=== PATIENT | male | born 1955 | race Caucasian/White ===

== ENCOUNTER 2022-09-21 09:19 | Emergency (ER) | payer OTHER ==
[~2022-09-21] VITALS: Ht 182.9 cm; Wt 83.0 kg
[2022-09-21 09:20] VITALS: BP_SYST 165
--- NOTE | 2022-09-21 09:20 | NUR ---
BROUGHT INTO BED #7 AND TRIAGED. REPORT GIVEN TO MITCH
--- NOTE | 2022-09-21 09:28 | NUR ---
PT STATES HE WAS CHANGING LIGHT BULBS ON A LADDER AND FELL, HITTING WALL AND TRASH CANS ON HIS WAY DOWN, THIS HAPPENED LAST NIGHT. PT STATES HE WENT TO URGENT CARE AND THEY SENT HIM HERE FOR CT. PT STATES PAIN TO LEFT CHEST WALL AND LEFT UPPER BACK. DENIES K.O. PT STATES HE IS HAVING SPASMS IN THE RIBS
--- NOTE | 2022-09-21 09:35 | NUR ---
PATIENT AMBULATORY TO ER C/O LEFT SIDED ARM BACK AND LEG PAIN S/P FALL LAST NIGHT FROM A LADDER, SKIN TEAR NOTED TO LEFT UPPER ARM, C/O CHEST PAIN AWAITING FOR EDP FOR INITIAL ASSESSMENT.
[2022-09-21] MEDS ORDERED: BACITRACIN 1 GM OINT TP ONE ×2 (09:38→09:45)
--- NOTE | 2022-09-21 09:40 | NUR ---
EDP AT BEDSIDE FOR INITIAL ASSESSMENT.
[2022-09-21] MEDS ORDERED: DIPHTH,PERTUSS(ACELL),TET VAC 0.5 ML VIAL (Tdap) I.M. ONE (09:45)
[2022-09-21] MEDS ORDERED: HYDROcodone/ACETAMIN 5-325 MG TAB (NORCO/ VICODIN) PO ONE (09:45)
--- NOTE | 2022-09-21 09:58 | NUR ---
TAKEN TO RADIOLOGY VIA WHEELCHAIR FOR TESTING
[2022-09-21 10:05] LABS: BASOPHILS # (AUTO) 0.1 K/uL (0.0-0.2); BASOPHILS % (AUTO) 0.8 % (0.0-2.0); EOSINOPHILS % (AUTO) 0.1 % (0.0-4.0); HEMATOCRIT 52.1 % (36-54); HEMOGLOBIN 17.7 g/dL (14.0-18.0); LYMPHOCYTES # (AUTO) 0.9 K/uL (1.0-5.5); LYMPHOCYTES % (AUTO) 10.7 % (20.5-51.5); MEAN CORPUSCULAR HEMOGLOBIN 34 pg (27-31); MEAN CORPUSCULAR HGB CONC 34 % (32-36); MEAN CORPUSCULAR VOLUME 100 fL (79.0-98.0); MONOCYTES # (AUTO) 0.4 K/uL (0.0-1.0); MONOCYTES % (AUTO) 4.2 % (1.7-9.3); NEUTROPHILS # (AUTO) 7.4 K/uL (1.8-7.7); NEUTROPHILS % (AUTO) 84.2 % (40.0-70.0); PLATELET COUNT (AUTO) 220 K/uL (130-430); RED BLOOD CELL COUNT(AUTO) 5.23 MIL/uL (4.2-6.2); WHITE BLOOD COUNT (AUTO) 8.8 K/uL (4.8-10.8)
[2022-09-21 10:25] LABS: ANION GAP 14 (5-15); CHLORIDE 102 mmol/L (98-107); CREATININE 0.88 mg/dL (0.55-1.30); GLUCOSE 96 mg/dL (70-99); UREA NITROGEN, BLOOD 16 mg/dL (8-21)
[2022-09-21 10:32] LABS: GFR AFRICAN AMERICAN 111 mL/min (>90)
[2022-09-21 10:48] LABS: ALANINE AMINOTRANSFERASE 19 U/L (12-78); ALBUMIN 4.1 g/dL (3.4-4.8); ASPARTATE AMINOTRANSFERASE 35 U/L (10-37); PHOSPHORUS 3.4 mg/dL (2.7-4.5); THYROID STIMULATING HORMONE 0.94 uIu/mL (0.34-4.82)
--- NOTE | 2022-09-21 12:33 | NUR ---
ALL RESULT BACK EDP REASSESS PATIENT AND D/C HOME WITH INSTRUCTION.
[2022-09-21] MEDS ORDERED: IBUP-1969 PO (12:36)
[2022-09-21] MEDS ORDERED: METO25TA6 PO (12:36)
--- NOTE | 2022-09-21 12:42 | NUR ---
Patient given written and verbal discharge instructions and verbalizes understanding. ER MD discussed with patient the results and treatment provided. Patient in stable condition. ID arm band removed. IV catheter removed intact and dressing applied, no active bleeding. Rx of IBUPROFEN/METOPROLOL given. Patient educated on pain management and to follow up with PMD. Pain Scale 0. Opportunity for questions provided and answered. Medication side effect fact sheet provided.
== END 2022-09-21 12:42 | disposition home or self-care (01) ==
LOC: SED 09:19
DX: S40.022A Contusion of left upper arm, initial encounter (principal); I48.91 Unspecified atrial fibrillation; E78.5 Hyperlipidemia, unspecified; F17.200 Nicotine dependence, unspecified, uncomplicated; I10 Essential (primary) hypertension; Z79.899 Other long term (current) drug therapy; W11.XXXA Fall on and from ladder, initial encounter; Y93.89 Activity, other specified; Y92.89 Other specified places as the place of occurrence of the external cause; Y99.8 Other external cause status
CPT/HCPCS: 36415; 71100; 73060-TC; 80053; 83735; 84100; 84443; 84484; 85025; 90715; 93005; 99285

== ENCOUNTER 2023-04-13 10:03 | Emergency (ER) | payer OTHER ==
[~2023-04-13] VITALS: Ht 182.9 cm; Wt 80.3 kg
[~2023-04-13 10:03] MED LIST: IBUP-1969 PO; METO25TA6 PO
[2023-04-13 10:13] VITALS: BP_SYST 118; PULSE 96; RESP 18; TEMP 97.6; O2SAT 97
--- NOTE | 2023-04-13 10:25 | NUR ---
Patient to ER bed 6 for evaluation. Side rails up. Report given to Kimberly CHEATHAM for Aniya GALVAN.
--- NOTE | 2023-04-13 10:30 | NUR ---
Dr Islas at bedside.
--- NOTE | 2023-04-13 10:40 | NUR ---
PATIENT BIB SELF C/O BLOOD IN STOOL X 1 WEEK. MED HX HTN, BPH, HLD. NKA. VSS. TAKING XARELTO, WHICH IS A FAIRLY NEW PRESCRIPTION. STATES HIGH STRESS LEVEL D/T FAMILY ISSUES AND WAS UNSURE WHETHER THAT CONTRIBUTES.
[2023-04-13 10:45] LABS: BASOPHILS % (AUTO) 0.7 % (0.0-2.0); EOSINOPHILS % (AUTO) 0.8 % (0.0-4.0); HEMATOCRIT 48.6 % (36-54); HEMOGLOBIN 16.2 g/dL (14.0-18.0); LYMPHOCYTES # (AUTO) 1.2 K/uL (1.0-5.5); LYMPHOCYTES % (AUTO) 21.8 % (20.5-51.5); MEAN CORPUSCULAR HEMOGLOBIN 34 pg (27-31); MEAN CORPUSCULAR HGB CONC 33 % (32-36); MEAN CORPUSCULAR VOLUME 102 fL (79.0-98.0); MONOCYTES # (AUTO) 0.3 K/uL (0.0-1.0); MONOCYTES % (AUTO) 5.8 % (1.7-9.3); NEUTROPHILS # (AUTO) 3.9 K/uL (1.8-7.7); NEUTROPHILS % (AUTO) 70.9 % (40.0-70.0); PLATELET COUNT (AUTO) 197 K/uL (130-430); RED BLOOD CELL COUNT(AUTO) 4.74 MIL/uL (4.2-6.2); RED CELL DISTRIBUTION WIDTH 15.5 % (9.0-15.0); WHITE BLOOD COUNT (AUTO) 5.5 K/uL (4.8-10.8)
[2023-04-13 10:57] LABS: CALCIUM 8.7 mg/dL (8.4-11.0); CREATININE 1.4 mg/dL (0.55-1.30)
[2023-04-13 11:01] LABS: ALBUMIN 3.5 g/dL (3.4-4.8); PROTHROMBIN TIME 10.6 SECS (9.5-12.5); TOTAL BILIRUBIN 1.1 mg/dL (0.0-1.0)
[2023-04-13 12:09] VITALS: BP_SYST 117; PULSE 82; RESP 18; TEMP 98.2; O2SAT 95
--- NOTE | 2023-04-13 12:10 | NUR ---
Patient given written and verbal discharge instructions and verbalizes understanding. ER MD discussed with patient the results and treatment provided. Patient in stable condition. ID arm band removed. NO Rx given. Patient educated on pain management and to follow up with PMD. Pain Scale 0/10. Opportunity for questions provided and answered. Medication side effect fact sheet provided.
== END 2023-04-13 12:10 | disposition home or self-care (01) ==
LOC: SED 10:03
DX: K62.5 Hemorrhage of anus and rectum (principal); I10 Essential (primary) hypertension; E78.5 Hyperlipidemia, unspecified; Z79.899 Other long term (current) drug therapy
CPT/HCPCS: 36415; 76376; 80053; 82150; 83605; 83690; 85025; 85610-TC; 85730-TC; 86886; 86900; 86901; 93005; 99284